=== PATIENT | female | born 1960 | race Caucasian/White ===

== ENCOUNTER 2018-04-27 19:23 | Emergency (ER) | payer BC ==
[2018-04-27 20:35] LABS: ADD MAN DIFF? NO
[2018-04-27 20:36] LABS: BASOPHIL # 0.1 10^3/ul (0.0-0.1); BASOPHILS % 0.6 % (0.0-2.0); EOSINOPHILS # 0.2 10^3/ul (0.0-0.5); EOSINOPHILS % 1.6 % (0.0-7.0); HEMATOCRIT 47.2 % (37.0-47.0); HEMOGLOBIN 15.3 g/dl (12.0-16.0); LYMPHOCYTES # 3.6 10^3/ul (0.8-2.9); LYMPHOCYTES % 28.8 % (15.0-51.0); MEAN CORPUSCULAR HEMOGLOBIN 30.3 pg (29.0-33.0); MEAN CORPUSCULAR HGB CONC 32.4 g/dl (32.0-37.0); MEAN CORPUSCULAR VOLUME 93.5 fl (82.0-101.0); MEAN PLATELET VOLUME 10.1 fl (7.4-10.4); MONOCYTE # 1.1 10^3/ul (0.3-0.9); MONOCYTES % 9.2 % (0.0-11.0); NEUTROPHIL # 7.4 10^3/ul (1.6-7.5); NEUTROPHILS % 59.5 % (39.0-77.0); PLATELET COUNT 306 10^3/UL (140-415); RED BLOOD COUNT 5.05 10^6/ul (4.20-5.40); RED CELL DISTRIBUTION WIDTH 13.4 % (11.5-14.5)
[2018-04-27 20:36] LABS: WHITE BLOOD COUNT 12.4 10^3/ul (4.8-10.8)
[2018-04-27 20:53] LABS: ADD UMIC YES; UR ASCORBIC ACID NEGATIVE (NEGATIVE); UR BILIRUBIN (Dip) NEGATIVE (NEGATIVE); UR BLOOD (Dip) 1+ mg/dL (NEGATIVE); UR CLARITY SLIGHTLY CLOUDY (CLEAR); UR COLOR YELLOW (YELLOW); UR GLUCOSE (Dip) NEGATIVE (NEGATIVE); UR KETONES (Dip) NEGATIVE (NEGATIVE); UR LEUKOCYTE ESTERASE (Dip) 3+ Leu/ul (NEGATIVE); UR MUCUS FEW /HPF (NONE SEEN); UR NITRITE (Dip) NEGATIVE (NEGATIVE); UR RBC 7 /HPF (0-5); UR SPECIFIC GRAVITY (Dip) 1.023 (1.003-1.030); UR SQUAMOUS EPITHELIAL CELL FEW /HPF (FEW); UR TOTAL PROTEIN (Dip) NEGATIVE (NEGATIVE); UR UROBILINOGEN (Dip) NEGATIVE (NEGATIVE); UR WBC 36 /HPF (0-5)
[2018-04-27 20:55] LABS: ALANINE AMINOTRANSFERASE 25 IU/L (13-69); ALBUMIN 4.3 g/dl (3.3-4.9); ALBUMIN/GLOBULIN RATIO 1.26; ALKALINE PHOSPHATASE 56 IU/L (42-121); ANION GAP 12 (8-16); ASPARTATE AMINO TRANSFERASE 25 IU/L (15-46); BILIRUBIN,INDIRECT 0.4 mg/dl (0-1.1); BILIRUBIN,TOTAL 0.4 mg/dl (0.2-1.3); BLOOD UREA NITROGEN 9 mg/dl (7-20); CALCIUM 9.6 mg/dl (8.4-10.2); CARBON DIOXIDE 28 mmol/L (21-31); CHLORIDE 105 mmol/L (97-110); CREATININE 0.77 mg/dl (0.44-1.00); GLUCOSE 89 mg/dl (70-220); LIPASE 64 U/L (23-300); SODIUM 141 mmol/L (135-144); TOTAL PROTEIN 7.7 g/dl (6.1-8.1)
== END 2018-04-27 21:20 | disposition home or self-care (01) ==
LOC: FTE 19:23
DX: K57.32 Diverticulitis of large intestine without perforation or abscess without bleeding (principal); I10 Essential (primary) hypertension
CPT/HCPCS: 36415; 74176; 80053; 81001; 83690; 85025; 99284-25